=== PATIENT | female | born 1965 | race Caucasian/White ===

== ENCOUNTER 2017-03-23 13:00 | Inpatient (IN) | payer BC ==
[~2017-03-23] VITALS: Ht 166.4 cm; Wt 102.0 kg
--- NOTE | ~2017-03-23 | OR ---
PATIENT'S NAME: BROCK COMBS [facility] AGE: 51 Y [address] ROOM: [address] [address] LOCATION: [facility] ADMIT DATE: 04/07/2017 OR/Procedure Report DISCHARGE DATE: FAMILY PHYSICIAN: NATALIA GEORGE ATTENDING PHYSICIAN: Parmjit Montanez SURGEON: Parmjit Montanez MD GREEN TIRE INSPECTOR: JENNIFER Madera. DATE OF PROCEDURE: 04/07/2017 PREOPERATIVE DIAGNOSIS: Varus osteoarthritis, left knee. POSTOPERATIVE DIAGNOSIS: Varus osteoarthritis, left knee. OPERATION: [facility] computer navigated tricompartmental cemented left total knee replacement with Manasa triathlon #4; femoral component; #3 tibial tray with a 9 mm X3 spacer and A29 patella. ANESTHESIA: Subarachnoid block. INDICATIONS: This is a 51-year-old female with clinical and radiographic evidence of osteoarthritis in her left knee, no longer responding to non- operative treatments. DESCRIPTION OF PROCEDURE: The patient was brought to the operating room, and when a satisfactory spinal anesthesia had been established, her left lower extremity was prepped and draped in an aseptic manner. The skin over the planned incision site was injected with Gavino mix and a straight anterior incision made and carried down through subcutaneous fat. The quadriceps tendon was exposed and quadriceps splitting approach was utilized such that the patella could be everted and dislocated laterally. The patella was measured at 20 mm and cut down to 12. A29 patella appeared to fit the best and 3 fixation holes. The knee was flexed and the distal femur exposed. The ASM gantry was pinned to the femoral articular surface and hip flexion registered. The center rotation of the hip was found and the center of the intercondylar notch in the AP femoral angle and the medial and lateral femoral condyles were all registered. The alignment jig was placed and a femoral cut planned for 0 degrees of varus and valgus at 4 degrees of flexion and 8 mm depth of cut. The cutting block was pinned into place. The distal femoral cut was made. The footed sizing jig was then positioned and 2 provisional fixation holes drilled. #4 cutting block was selected. It was impacted on the distal femur and the anterior femoral cut made and it was satisfactory, so the anterior and posterior femoral chamfer cuts were all made. The tibial articular surface was then exposed. The soft tissues debrided. The ASM gantry was pinned to the tibial articular surface and the center of the tibia, midline of the tibia, medial and lateral tibial plateaus, and medial and PATIENT'S NAME: BROCK COMBS [facility] AGE: 51 Y [address] ROOM: [address] [address] LOCATION: [facility] ADMIT DATE: 04/07/2017 OR/Procedure Report DISCHARGE DATE: FAMILY PHYSICIAN: NATALIA GEORGE ATTENDING PHYSICIAN: Parmjit Montanez lateral malleolar were all registered. The alignment jig was placed and cut planned for 0 degrees of varus and valgus with 3 degrees posterior slope and 9 mm depth of cut off the lateral tibial plateau. The cutting block was pinned in place. The tibial cut made. The spacer block was placed. The knee extended fully. The #3 tibial template appeared to fit the best and the 9 mm trial was placed and template allowed to float in an attempt to align the rotation of the tibial tray with the femoral component. The tibial tray template was cemented into place. The tower was clipped onto the template and the plunger impacted home. The femoral lug holes were drilled through the femoral trial. A trial reduction was performed with a 9 mm spacer and the knee extended fully and was stable with varus and valgus stressing. The trials were then removed and posterior capsule injected with Gavino mix and hemostasis achieved with the Aquamantys. Cut bony surfaces were irrigated and dried while cement was mixed. The tibial tray was cemented into place first and excess cement removed while soft with a Morrill elevator. The 9 mm X3 spacer was impacted home. The femoral and patellar components were then cemented into place and excess cement removed while soft with a Morrill elevator. Once the cement had set, the knee was taken through a range of motion and the patella tracked well without any thumb pressure. The knee was then irrigated copiously with saline and the wound closed in layers using a running #1 Vicryl for the quadriceps tendon. The remainder of the closure was by JENNIFER Gusman, who closed medial capsule with a running #1 Vicryl, subcutaneous fat with a running 2-0 Vicryl, and the skin with skin tiff. Dressings were applied and the patient sent to the recovery area, having tolerated the procedure well. MD CATHLEEN HILLMAN/veronica /[id number] d: 04/07/17 1237 t: 04/13/17 1324, OPERATIVE SUMMARY
--- NOTE | ~2017-03-23 | PUL ---
PATIENT'S NAME: BROCK COMBS [facility] AGE: 51 Y [address] ROOM: [address] [address] LOCATION: [facility] ADMIT DATE: 04/07/2017 Pulmonary DISCHARGE DATE: 04/10/2017 FAMILY PHYSICIAN: NATALIA GEORGE ATTENDING PHYSICIAN: Parmjit Montanez NAME OF PROCEDURE: Overnight Pulse Oximetry DATE OF PROCEDURE: April 08 to April 09, 2017 REASON FOR EXAM: Nocturnal hypoxemia RESULTS: The test was performed on room air. The recording time was 9 hours, 22 minutes, and 24 seconds, with a total valid sampling time of 8 hours, 51 minutes, and 36 seconds. The highest pulse was 104, lowest pulse was 57, with a mean pulse of 75. The highest SpO2 was 100%, lowest SpO2 was 73%, with a mean SpO2 of 90.2%. The patient spent 3 hours, 16 minutes, and 52 seconds with SpO2 less than 89%, representing 37% of the total sleep time. The desaturation event index was elevated at 40. PHYSICIAN INTERPRETATION: The patient has evidence of severe nocturnal hypoxia and would qualify for supplemental oxygen as per Medicare criteria. However, because of the severity of her nocturnal hypoxia with an elevated desaturation event index a sleep study is recommended at this time. MD BASIA CHÁVEZ/venus /[id number] dtt: 04/14/17 0722 IVIS RADU F dtd: 04/13/17 1424
--- NOTE | ~2017-03-23 | DS ---
PATIENT'S NAME: BROCK COMBS [facility] AGE: 51 Y [address] ROOM: [address] [place], [place] [address] LOCATION: [facility] ADMIT DATE: 04/07/2017 Discharge Summary DISCHARGE DATE: 04/10/2017 FAMILY PHYSICIAN: NATALIA GEORGE ATTENDING PHYSICIAN: Parmjit Montanez ADMITTING DIAGNOSIS: Left knee degenerative joint disease. COMORBIDITIES: Chronic CHF, hypertension, tobacco abuse. PROCEDURE: Left total knee arthroplasty. She got a triathlon X3 29 patella size 3 primary base plate, 9-mm cruciate retaining spacer, and a size 4 femur. HOSPITAL COURSE: The patient was admitted on the [facility] protocol, had total knee arthroplasty performed with Pathfork components. Postoperatively, she got Xarelto. She is a current smoker. She had Dilaudid ordered for breakthrough pain and spinal anesthetic. She had Tylenol postoperatively for pain control. She had a pain block placed for postoperative pain control and tolerated that well. She had some symptoms of obstructive sleep apnea postoperatively and had DuoNeb treatments. She does have history of chronic CHF and they adjusted her fluid restrictions accordingly. She has chronic respiratory failure with COPD. Xarelto will be continued to be used for DVT prophylaxis. The patient had overnight oximetry and qualified for O2 at night due to hypoxemia. Postop day 3, arrangements made for the patient to be transferred to home. Leave Mepilex on until followup appointment. Follow up with myself in 6 to 12 days. Follow up with Dr. Montanez in 3 weeks. Make arrangements for home sleep study. Continue on prehospitalization medication regimen with the following addition; Xarelto for postop DVT prophylaxis, last dose on 04/19/2017; Valium as needed for spasms q.6 hours 2.5 to 5 mg, dispensed 30; Shelby 7.5 q.4 to 6 hours p.r.n. pain, dispensed 60. JENNIFER HOLLOWAY FOR MD SANTOS HILLMAN/veronica /[id number] d: 05/06/17 0414 t: 05/19/17 1243, DISCHARGE SUMMARY
[2017-03-23] MEDS ORDERED: PROAIR HFA8.5 GM INH (14:30)
[2017-03-23] MEDS ORDERED: DEMADEX20 MG PO (14:30)
[2017-03-23] MEDS ORDERED: ZESTRIL40 MG PO (14:30)
[2017-03-23] MEDS ORDERED: IMDUR30 MG PO (14:31)
[2017-03-23] MEDS ORDERED: NORCO 7.5-3251 EACH PO (14:31)
[2017-03-23] MEDS ORDERED: LIPITOR10 MG PO (14:35)
[2017-04-08 05:40] LABS: HEMATOCRIT 34.3 % (33.0-46.0); HEMOGLOBIN 11.3 g/dL (10.0-15.0)
[2017-04-10] MEDS ORDERED: OXYGEN M-15 INH (10:37)
[2017-04-10] MEDS ORDERED: COLACE100 MG PO (10:38)
[2017-04-10] MEDS ORDERED: MIRALAX17 GM PO (10:39)
[2017-04-10] MEDS ORDERED: XARELTO10 MG PO (10:40)
[2017-04-10] MEDS ORDERED: NORCO 5-325 TA1 EACH PO (10:42)
[2017-04-10] MEDS ORDERED: VALIUM5 MG PO (10:42)
== END 2017-04-10 13:10 | disposition disaster alternative care site (69) | DRG 470 ==
LOC: G3N 04-07 05:41
PROVIDERS: ADMIT Orthopaedic Surgery
PROC: 0SRD0J9 Replacement of Left Knee Joint with Synthetic Substitute, Cemented, Open Approach (ICD-10-PCS; principal; 2017-04-07)
PROC: 8E0YXBZ Computer Assisted Procedure of Lower Extremity (ICD-10-PCS; principal; 2017-04-07)
DX: M17.12 Unilateral primary osteoarthritis, left knee (principal); J96.10 Chronic respiratory failure, unspecified whether with hypoxia or hypercapnia; I11.0 Hypertensive heart disease with heart failure; G47.36 Sleep related hypoventilation in conditions classified elsewhere; I50.22 Chronic systolic (congestive) heart failure; M21.162 Varus deformity, not elsewhere classified, left knee; F17.290 Nicotine dependence, other tobacco product, uncomplicated; J44.9 Chronic obstructive pulmonary disease, unspecified; I25.2 Old myocardial infarction; E78.5 Hyperlipidemia, unspecified; E66.9 Obesity, unspecified; Z68.34 Body mass index [BMI] 34.0-34.9, adult
CPT/HCPCS: C1713; C1776; J0171; J0690; J0735; J1170; J1885; J2001; J2250; J2300; J2405; J2795; J7040; J7120

== ENCOUNTER → 2017-03-25 | Outpatient (CLI) | payer BC ==
[~2017-03-25] MED LIST: COLACE100 MG PO; DEMADEX20 MG PO; IMDUR30 MG PO; LIPITOR10 MG PO; MIRALAX17 GM PO; NORCO 5-325 TA1 EACH PO; NORCO 7.5-3251 EACH PO; OXYGEN M-15 INH; PROAIR HFA8.5 GM INH; VALIUM5 MG PO; XARELTO10 MG PO; ZESTRIL40 MG PO
== END | disposition disaster alternative care site (69) ==
LOC: GNJRC 10:30
DX: Z01.812 Encounter for preprocedural laboratory examination (principal)